=== PATIENT | male | born 1985 | race African-American/Black ===

== ENCOUNTER 2016-12-18 17:04 | Inpatient (IN) | payer MEDICAID ==
[~2016-12-18] VITALS: Ht 177.8 cm; Wt 60.0 kg
[~2016-12-18 17:04] MED LIST: IBUP800 PO
[2016-12-18 17:06] VITALS: BP 113/67; PULSE 74; RESP 24; TEMP 98; O2SAT 100
[2016-12-18] MEDS ORDERED: TETANUS/DIPHTHERIA TOXOID ADULT 0.5 ML VIAL IM ONE (18:00)
[2016-12-18] MEDS ORDERED: CEPHALEXIN MONOHYDRATE 500 MG CAP PO ONE (18:00)
[2016-12-18] MEDS ORDERED: SULFAMETHOXAZOLE-TRIMETHOPRIM DS 800-160 MG TAB PO ONE (18:00)
--- NOTE | 2016-12-18 18:30 | RADRPT ---
EXAM DATE/TIME: 12/18/2016 18:01 [facility] COMPARISON: No previous studies available for comparison. INDICATIONS : Right hand, base of 3rd digit pain after pricked from palm thorn. MEDICAL HISTORY : None. SURGICAL HISTORY : None. ENCOUNTER: Initial ACUITY: 1 day PAIN SCORE: 10/10 LOCATION: Right proximal 3rd digit. FINDINGS: Examination of the third digit of the right hand demonstrates no evidence of fracture or dislocation. No radiopaque foreign bodies are seen. Extensive soft tissue thickening. CONCLUSION: Soft tissue swelling third digit. No radiopaque foreign body. Serafin Kingsley MD on December 18, 2016 at 18:28 Board Certified Radiologist. This report was verified electronically.
[2016-12-18] MEDS ORDERED: VANCOMYCIN INJ 1,000 MG in SODIUM CHLOR 0.9% 250 ML INJ 250 ML IV ONE (20:00)
[2016-12-18 20:09] LABS: AUTOMATED NEUTROPHIL # 6.2 TH/MM3 (1.8-7.7); BASOPHIL # 0.1 TH/MM3 (0-0.2); BASOPHIL % 0.5 % (0.0-2.0); EOSINOPHIL # 0.3 TH/MM3 (0-0.4); HEMATOCRIT 38.1 % (39.0-51.0); HEMO FLAGS DIFF FINAL; LYMPH % 25.6 % (9.0-44.0); LYMPHOCYTE # 2.6 TH/MM3 (1.0-4.8); MEAN CELL VOLUME 96.4 FL (80.0-100.0); MEAN CORPUSCULAR HEMOGLOBIN 31.8 PG (27.0-34.0); MONO % 9.5 % (0.0-8.0); NEUT % 61.4 % (16.0-70.0); PLATELET COUNT 267 TH/MM3 (150-450); RED BLOOD COUNT 3.96 MIL/MM3 (4.50-5.90); RED CELL DISTRIBUTION WIDTH 12.7 % (11.6-17.2); WHITE BLOOD COUNT 10.1 TH/MM3 (4.0-11.0)
[2016-12-18] MEDS: SODIUM CHLORIDE 0.9% FLUSH 10 ML FLUSH IV FLUSH SCH (20:13)
[2016-12-18] MEDS ORDERED: NALOXONE HCL 0.4 MG/ML AMP IV PRN (20:15)
[2016-12-18] MEDS ORDERED: ONDANSETRON HCL 4 MG/2 ML VIAL IVP PRN (20:15)
[2016-12-18] MEDS ORDERED: SODIUM CHLORIDE 0.9% FLUSH 10 ML FLUSH IV FLUSH PRN (20:15)
--- NOTE | 2016-12-18 20:19 | PD ---
HPI Chief Complaint: Edema Time Seen by Provider: 20:13 Travel History International Travel<30 days: No Contact w/Intl Traveler<30days: No Traveled to known affect area: No History of Present Illness HPI 31-year-old male that presents to the ED for evaluation of swelling to his right middle finger. Patient states that he was working outside picking up palm trees and one of the palm trees, big spine that cut him on the palmar aspect of the right middle finger. Patient was able to move the finger fully and he actually went to sleep. Per patient he believes that he got all out. Per patient he woke up and he developed the pain and the swelling. Per patient is severe. Per patient he is able to move the finger where he has a lot of pain especially with flexion at the palmar aspect of the digit. He denies any numbness, tilling, weakness. Unclear of his last tetanus shot. Per patient is happened today. Earlier in the morning. He has no allergies to medication. He has not seen anybody for this. Pain per patient is 8 out of 10 and gets worse with movement and touch. PFSH Past Medical History Medical History: Denies Significant Hx Diminished Hearing: No Immunizations Current: Yes Tetanus Vaccination: Unknown Influenza Vaccination: No ?: Not Past Surgical History Surgical History: No Previous Surgery Social History Alcohol Use: No Tobacco Use: No (1 ppd) Substance Use: No Allergies-Medications (Allergen,Severity, Reaction): Coded Allergies: No Known Allergies (Unverified , 12/18/16) Reported Meds & Prescriptions Reported Meds & Active Scripts Active No Active Prescriptions or Reported Medications Review of Systems Except as stated in HPI: all other systems reviewed are Neg Physical Exam Narrative GENERAL: SKIN: Warm and dry. Patient has an area of erythema and swelling noted on the palmar aspect of the PIP aspect of the right middle finger. Swelling and redness noted. No foreign body noted. Patient has reproducible pain on the tendon around this area especially with flexion. Good capillary refill. Sensation intact bilaterally. HEAD: Atraumatic. Normocephalic. EYES: Pupils equal and round. No scleral icterus. No injection or drainage. ENT: No nasal bleeding or discharge. Mucous membranes pink and moist. Tongue is midline. No blood deviation. NECK: Trachea midline. No JVD. CARDIOVASCULAR: Regular rate and rhythm. RESPIRATORY: No accessory muscle use. Clear to auscultation. Breath sounds equal bilaterally. GASTROINTESTINAL: Abdomen soft, non-tender, nondistended. Hepatic and splenic margins not palpable. MUSCULOSKELETAL: Extremities without clubbing, cyanosis, or edema. No obvious deformities. NEUROLOGICAL: Awake and alert. No obvious cranial nerve deficits. Motor grossly within normal limits. Five out of 5 muscle strength in the arms and legs. Normal speech. PSYCHIATRIC: Appropriate mood and affect; insight and judgment normal. Data Data Last Documented VS Vital Signs Date Time Temp Pulse Resp B/P Pulse Ox O2 Delivery O2 Flow Rate FiO2 12/18/16 17:06 98.0 74 24 113/67 100 Room Air Orders Tetanus/Diphtheria Tox Adult (Tetanus/Di (12/18/16 18:00) Sulfamet-Trimeth Ds 800-160 Mg (Bactrim (12/18/16 18:00) Cephalexin (Keflex) (12/18/16 18:00) Finger (Oxa6yae) (12/18/16 ) Complete Blood Count With Diff (12/18/16 19:35) Basic Metabolic Panel (Bmp) (12/18/16 19:35) Westergren Sedimentation Rate (12/18/16 19:36) C-Reactive Protein (Crp) (12/18/16 19:36) Diet Npo (12/19/16 Breakfast) Consent (12/18/16 19:37) Consult Hand Surgery (12/18/16 ) (Hub Use Only)Inp Phy Cons/Ref (12/18/16 ) Vancomycin Inj (Vancomycin Inj) (12/18/16 20:00) Admit To Inpatient (12/18/16 ) Vital Signs (Adult) Q4H (12/18/16 20:01) Activity Oob Ad Sandra (12/18/16 20:01) Sodium Chloride 0.9% Flush (Ns Flush) (12/18/16 20:15) Sodium Chloride 0.9% Flush (Ns Flush) (12/18/16 21:00) Acetaminophen (Tylenol) (12/18/16 20:15) Ondansetron Inj (Zofran Inj) (12/18/16 20:15) Basic Metabolic Panel (Bmp) (12/19/16 06:00) Complete Blood Count With Diff (12/19/16 06:00) Naloxone Inj (Narcan Inj) (12/18/16 20:15) Inpatient Certification (12/18/16 ) Admit Order (Ed Use Only) (12/18/16 20:06) Labs Laboratory Tests Test 12/18/16 19:45 White Blood Count 10.1 TH/MM3 Red Blood Count 3.96 MIL/MM3 Hemoglobin 12.6 GM/DL Hematocrit 38.1 % Mean Corpuscular Volume 96.4 FL Mean Corpuscular Hemoglobin 31.8 PG Mean Corpuscular Hemoglobin 33.0 % Concent Red Cell Distribution Width 12.7 % Platelet Count 267 TH/MM3 Mean Platelet Volume 7.9 FL Neutrophils (%) (Auto) 61.4 % Lymphocytes (%) (Auto) 25.6 % Monocytes (%) (Auto) 9.5 % Eosinophils (%) (Auto) 3.0 % Basophils (%) (Auto) 0.5 % Neutrophils # (Auto) 6.2 TH/MM3 Lymphocytes # (Auto) 2.6 TH/MM3 Monocytes # (Auto) 1.0 TH/MM3 Eosinophils # (Auto) 0.3 TH/MM3 Basophils # (Auto) 0.1 TH/MM3 CBC Comment DIFF FINAL Differential Comment MDM Medical Decision Making Medical Screen Exam Complete: Yes Emergency Medical Condition: Yes Medical Record Reviewed: Yes Interpretation(s) CBC & BMP Diagram 12/18/16 19:45 Last Impressions Finger X-Ray 12/18/16 0000 Signed Impressions: Service Date/Time: Sunday, December 18, 2016 18:01 - CONCLUSION: Soft tissue swelling third digit. No radiopaque foreign body. Serafin Kingsley MD Differential Diagnosis Tenosynovitis versus cellulitis versus abscess versus foreign body Narrative Course 30-year-old male that presents to the ED for evaluation of right middle finger injury. Patient was properly examined and was found to have signs and symptoms consistent appears to be foreign body versus cellulitis versus abscess versus tenosynovitis. X-ray was done and show no sign of foreign body. I had my attending Dr. Jerry evaluated the patient and he agrees to the finger concerned about tenosynovitis. Recommendation at this time is to consult with hand surgeon. We spoke with Dr. Mills over the phone who recommends admission to medicine and nothing by mouth status and possible surgery today or tomorrow. This was discussed with the patient who agrees with plan. Patient was started on IV as well as IV medications. Patient was admitted to Dr. Puga who agrees to admission. Diagnosis Primary Impression: Tenosynovitis of finger Additional Impression: Cellulitis Qualified Code: L03.011 - Cellulitis of finger of right hand Admitting Information Admitting Physician Requests: Observation Scripts No Active Prescriptions or Reported Meds Chris Sarabia Dec 18, 2016 20:19
[2016-12-18 20:42] LABS: BICARBONATE 27.6 MEQ/L (21.0-32.0); POTASSIUM 3.8 MEQ/L (3.5-5.1)
[2016-12-18] MEDS: ACETAMINOPHEN 325 MG TAB PO PRN (21:14)
[2016-12-18] MEDS ORDERED: diphenhydrAMINE HCL 50 MG/ML VIAL IV PUSH ONE (21:15)
[2016-12-18] MEDS ORDERED: ACETAMINOPHEN/HYDROcodone 325 MG/5 MG TAB PO ONE (22:15)
[2016-12-19 01:04] VITALS: BP 110/71; PULSE 49; RESP 20; TEMP 97.6; O2SAT 98
[2016-12-19 04:17] VITALS: BP 112/76; PULSE 50; RESP 18; TEMP 98.6; O2SAT 98
[2016-12-19] MEDS: MORPHINE SULFATE 4 MG/ML INJ IV PUSH PRN ×3 (05:02→21:54)
[2016-12-19 07:36] LABS: AUTOMATED NEUTROPHIL # 4.5 TH/MM3 (1.8-7.7); BASOPHIL % 0.6 % (0.0-2.0); EOSINOPHIL # 0.2 TH/MM3 (0-0.4); EOSINOPHIL % 3.3 % (0.0-4.0); HEMATOCRIT 38.2 % (39.0-51.0); HEMO FLAGS DIFF FINAL; LYMPH % 25.8 % (9.0-44.0); MEAN CELL VOLUME 95.7 FL (80.0-100.0); MEAN CORPUSCULAR HEMOGLOBIN 32.1 PG (27.0-34.0); MEAN CORPUSCULAR HGB CONC 33.5 % (32.0-36.0); MONO % 12.1 % (0.0-8.0); NEUT % 58.2 % (16.0-70.0); PLATELET COUNT 262 TH/MM3 (150-450); RED BLOOD COUNT 3.99 MIL/MM3 (4.50-5.90); RED CELL DISTRIBUTION WIDTH 12.7 % (11.6-17.2); WHITE BLOOD COUNT 7.6 TH/MM3 (4.0-11.0)
[2016-12-19 07:40] VITALS: BP 108/60; PULSE 60; RESP 22; TEMP 98; O2SAT 98
[2016-12-19 08:09] LABS: BICARBONATE 25.3 MEQ/L (21.0-32.0); POTASSIUM 3.8 MEQ/L (3.5-5.1)
[2016-12-19] MEDS: SODIUM CHLORIDE 0.9% FLUSH 10 ML FLUSH IV FLUSH SCH ×2 (08:48→21:00)
[2016-12-19] MEDS ORDERED: PNEUMOCOCCAL POLYVALENT INJ 25 MCG/0.5 ML SYR IM ONE (10:00)
[2016-12-19] MEDS ORDERED: PHENYLEPH/NS 1000 MCG/10 ML SYR IV ONE (11:52)
[2016-12-19] MEDS ORDERED: PROPOFOL 200 MG/20 ML AMP IV ONE (11:52)
[2016-12-19] MEDS ORDERED: ONDANSETRON HCL 4 MG/2 ML VIAL IV PUSH ONE (11:52)
[2016-12-19 12:10] VITALS: BP 133/65; PULSE 62; RESP 20; TEMP 98.5; O2SAT 100
--- NOTE | 2016-12-19 12:39 | HHI.HP ---
[facility] Admission Diagnosis right middle finger tendosynovitis Diagnoses: Chief Complaint: right middle finger pain/swelling Travel History International Travel<30 Days: No Contact w/Intl Traveler <30 Da: No Traveled to Known Affected Are: No History of Present Illness 31-year-old male with history of tobacco use, presents with a 2 day history of worsening right 3rd finger pain and swelling. The patient reports he was working outside on Friday 12/15 when a palm tree's thorn became lodged into palmar aspect at the base of the right 3rd finger. Later that night he burned a safety pin then used the pin to retrieve the thorn out of his finger. He states the area was initially just sore, but then noticed worsening swelling of the entire finger on Sunday 12/17. Yesterday the swelling worsened and he was unable to bend the finger therefore he presented to the ED. Denies fevers/chills. Since his arrival, he has been given IV Vanco/Zosyn, and he has noticed worsening edema, pain, and warmth of the 2nd, 3rd, 4th digits with edema into the dorsal hand. Pain described as constant, severe, 9/10, worse with any movement of the hand or any palpation. He is still able to flex the right wrist without difficulty. He feels some lymphadenopathy in the right axilla. Denies any lymphangitis. He denies any other medical complaints including no chest pain , palpitations, shortness of breath, or abdominal complaints. He is awaiting evaluation by hand surgery. Review of Systems Except as stated in HPI: all other systems reviewed are Neg Past Family Social History Past Medical History Left arm fracture, no surgery Past Surgical History Denies any prior surgeries Reported Medications Denies taking any medications on a regular basis Allergies: Coded Allergies: No Known Allergies (Unverified , 12/18/16) Active Ordered Medications Current Medications Medications (Trade) Dose Ordered Sig/Nitish Route Start Time Stop Time Status Last Admin (NS Flush) 2 ml UNSCH PRN IV FLUSH 12/18/16 20:15 (NS Flush) 2 ml BID IV FLUSH 12/18/16 21:00 12/19/16 08:48 (Tylenol) 650 mg Q4H PRN PO 12/18/16 20:15 12/18/16 21:14 (Zofran Inj) 4 mg Q6H PRN IVP 12/18/16 20:15 Naloxone HCl 0.4 mg 0.4 mg UNSCH PRN IV 12/18/16 20:15 (Ancef Inj/NS Inj) 100 ml @ 200 mls/hr Q8H IV 12/18/16 22:15 12/19/16 05:03 Morphine Sulfate 2 mg 2 mg Q4H PRN IV PUSH 12/19/16 05:00 12/19/16 05:02 Potassium Chloride/Dextrose/ Sod Cl 1,000 ml @ 100 mls/hr Q10H IV 12/19/16 13:00 Pharmacy Profile Note 0 ml @ 0 mls/hr UNSCH OTHER 12/19/16 12:45 (Vancomycin Inj/ NS 250 ml Inj) 250 ml @ 250 mls/hr Q12H IV 12/19/16 14:00 Miscellaneous Information SPECIFIC LAB TO BE DRAWN:VANCOMYCIN TROUGH DATE TO... ONCE ONCE .XX 12/21/16 01:45 12/21/16 01:46 Family History Denies any significant family history of heart disease, stroke, diabetes, or cancers. Social History Smokes tobacco 1 PPD Denies any alcohol use Denies any illicit drug use Physical Exam Vital Signs Vital Signs Date Time Temp Pulse Resp B/P Pulse Ox O2 Delivery O2 Flow Rate FiO2 12/19/16 12:10 98.5 62 20 133/65 100 12/19/16 07:40 98.0 60 22 108/60 98 12/19/16 05:22 18 12/19/16 04:17 98.6 50 18 112/76 98 12/19/16 02:12 18 12/19/16 01:04 97.6 49 20 110/71 98 12/18/16 21:59 18 12/18/16 17:06 98.0 74 24 113/67 100 Room Air Physical Exam GENERAL: Well-nourished, well-developed young male patient in [facility]. SKIN: Warm and dry. Right 3rd digit with diffuse edema, erythema, with edema extending into 2nd and 4th digits and the hand; diffuse tenderness to palpation throughout the entire hand and 2nd, 3rd, 4th digits. +Axillary lymphadenopathy. HEAD: Normocephalic. Atraumatic. EYES: Pupils equal and round. No scleral icterus. No injection or drainage. ENT: No nasal bleeding or discharge. Mucous membranes pink and moist. NECK: Supple. Trachea midline. CARDIOVASCULAR: Regular rate and rhythm. S1, S2 noted. No murmur appreciated. RESPIRATORY: No accessory muscle use. Clear to auscultation. Breath sounds equal bilaterally. GASTROINTESTINAL: Abdomen soft, non-tender, nondistended. Normoactive bowel sounds x4. MUSCULOSKELETAL: No obvious deformities. Unable to flex the 2nd, 3rd, 4th digits secondary to edema/pain. Full active ROM right wrist. 2+ bilateral radial pulses with brisk capillary refill of all digits. NEUROLOGICAL: Awake and alert. No obvious cranial nerve deficits. Motor grossly within normal limits. Normal speech. PSYCHIATRIC: Appropriate mood and affect; insight and judgment normal. Laboratory Laboratory Tests Test 12/18/16 12/19/16 19:45 06:13 White Blood Count 10.1 7.6 Red Blood Count 3.96 3.99 Hemoglobin 12.6 12.8 Hematocrit 38.1 38.2 Mean Corpuscular Volume 96.4 95.7 Mean Corpuscular Hemoglobin 31.8 32.1 Mean Corpuscular Hemoglobin 33.0 33.5 Concent Red Cell Distribution Width 12.7 12.7 Platelet Count 267 262 Mean Platelet Volume 7.9 8.6 Neutrophils (%) (Auto) 61.4 58.2 Lymphocytes (%) (Auto) 25.6 25.8 Monocytes (%) (Auto) 9.5 12.1 Eosinophils (%) (Auto) 3.0 3.3 Basophils (%) (Auto) 0.5 0.6 Neutrophils # (Auto) 6.2 4.5 Lymphocytes # (Auto) 2.6 2.0 Monocytes # (Auto) 1.0 0.9 Eosinophils # (Auto) 0.3 0.2 Basophils # (Auto) 0.1 0.0 CBC Comment DIFF FINAL DIFF FINAL Differential Comment Erythrocyte Sedimentation Rate 1 Sodium Level 140 142 Potassium Level 3.8 3.8 Chloride Level 106 110 Carbon Dioxide Level 27.6 25.3 Anion Gap 6 7 Blood Urea Nitrogen 17 14 Creatinine 1.20 1.18 Estimat Glomerular Filtration 85 86 Rate Random Glucose 72 68 Calcium Level 8.8 8.4 C-Reactive Protein 0.43 Result Diagram: 12/19/16 0613 12/19/16 0613 Imaging Last Impressions Finger X-Ray 12/18/16 0000 Signed Impressions: Service Date/Time: Sunday, December 18, 2016 18:01 - CONCLUSION: Soft tissue swelling third digit. No radiopaque foreign body. Serafin Kingsley MD Assessment and Plan Problem List: (1) Tenosynovitis of finger ICD Code: M65.9 Status: Acute (2) Cellulitis ICD Code: L03.90 Status: Acute Assessment and Plan 31-year-old male with history of tobacco use, presents with a 2 day history of worsening right 3rd finger pain and swelling. Right 3rd Finger Tenosynovitis/Cellulitis: pain/edema worsening, now diffuse throughout the entire R hand. Afebrile, no leukocytosis. CRP slightly elevated. Right 3rd finger Xray images reviewed, shows soft tissue swelling 3rd digit. -Continue antibiotics with IV Vanco/Zosyn -Keep hand elevated -Ice packs prn -Pain control with IV Morphine prn -check hand MRI -Keep NPO for now -Consult hand surgery -will need to obtain cultures during surgery Tobacco Use: smokes 1 PPD -counseled on cessation -patient declines nicotine patch at this time DVT Prophylaxis: low risk, ambulation; avoid chemoprophylaxis with upcoming procedure The exam, history, and the medical decision-making described in the above note were completed with the assistance of the mid-level provider. I reviewed and agree with the findings presented. I attest that I had a [id number] encounter with the patient on the same day, and personally performed and documented my assessment and findings in the medical record. Code Status Full Code Discussed Condition With Patient, CDU RN, Dr. Maguire Physician Certification 2 Midnight Certification Type: Admission for Inpatient Services Order for Inpatient Services The services are ordered in accordance with Medicare regulations or non- Medicare payer requirements, as applicable. In the case of services not specified as inpatient-only, they are appropriately provided as inpatient services in accordance with the 2-midnight benchmark. Estimated LOS (days): 3 days is the estimated time the patient will need to remain in the hospital, assuming treatment plan goals are met and no additional complications. Post-Hospital Plan: Home Problem Qualifiers (1) Cellulitis: Qualified Code: L03.011 - Cellulitis of finger of right hand Isabelle Mcwilliams PA-C Dec 19, 2016 12:39 Arcadio March MD Dec 19, 2016 15:23
[2016-12-19] MEDS ORDERED: Vancomycin Consult Pharmacy 1 EA OTHER SCH (12:45)
[2016-12-19 14:10] VITALS: BP 113/64; PULSE 54; RESP 18; TEMP 98.2; O2SAT 100
[2016-12-19] MEDS: D5-1/2 NS + KCL 20 MEQ INJ 1,000 ML IV SCH (14:53)
[2016-12-19] MEDS: VANCOMYCIN 1,000 MG/NS 250 ML IV SCH ×2 (14:54)
[2016-12-19] MEDS ORDERED: ceFAZolin INJ 1,000 MG VIAL IV ONE (16:20)
[2016-12-19] MEDS ORDERED: GADODIAMIDE PF 287 MG/ML 5 ML VIAL (for RAD MRI) IV ONE (17:19)
--- NOTE | 2016-12-19 17:42 | RADRPT ---
EXAM DATE/TIME: 12/19/2016 16:34 [facility] COMPARISON: FINGER RIGHT 3RD DIGIT ([id number]), December 18, 2016, 18:01. INDICATIONS : Abscess. CONTRAST: 12 cc Omniscan (gadodiamide) IV MEDICAL HISTORY : None. SURGICAL HISTORY : None. ENCOUNTER: Initial ACUITY: 4-6 days PAIN SCORE: 5/10 LOCATION: Right Hand TECHNIQUE: Multiplanar, multisequence MRI examination was performed without contrast and after the intravenous a dministration of gadolinium. FINDINGS: There is evidence of diffuse soft-tissue swelling involving the right hand predominantly surrounding the right second, third and fourth metacarpophalangeal joints and metacarpals. There is a subcutaneo us collection at the base of the right third digit adjacent to the proximal phalanx measuring 1.0 x 1 .0 cm consistent with probable small subcutaneous abscess. There is minimal marrow edema involving t he proximal portion of the right third proximal phalanx which is nonspecific. If there is strong cli nical concern for osteomyelitis three-phase bone scan or white blood cell scan may be useful in this patient. CONCLUSION: 1. 1.0 x 1.0 cm subcutaneous collection at the base of the right third digit along its volar aspect w hich likely represents small abscess. 2. Diffuse cellulitis predominantly involving the right third digit but also extending into the regio ns of the second and fourth digits predominantly in the metacarpophalangeal and metacarpal regions. 3. Minimal marrow edema involving the proximal portion of the right third proximal phalanx which is n onspecific. If there is strong clinical concern for osteomyelitis, three-phase bone scan or white blo od cell scan may be useful in this patient. Yordan Ambrose MD on December 19, 2016 at 17:25 Board Certified Radiologist. This report was verified electronically.
[2016-12-19] MEDS ORDERED: LIDOCAINE HCL 2% 50 ML VIAL ONE (17:53)
[2016-12-19] MEDS ORDERED: NEOMYCIN/POLYMYXIN 1 ML G.U. IRRIGANT TOPICAL ONE (18:12)
[2016-12-19] MEDS ORDERED: MIDAZOLAM HCL 2 MG/2 ML VIAL ONE (19:05)
[2016-12-19] MEDS ORDERED: fentaNYL CITRATE 250 MCG/5 ML AMP ONE (19:05)
[2016-12-19] MEDS ORDERED: DO NOT ADM ANY ANTICOAGULANT DRUGS PRN (19:15)
[2016-12-19] MEDS ORDERED: *morphine SULFATE 8 MG/ML PERIprocedure ONLY ONE ×2 (19:18→19:30)
[2016-12-19 19:55] VITALS: BP 132/68; PULSE 64; RESP 20; TEMP 98.7; O2SAT 99
--- NOTE | 2016-12-19 21:23 | PD.ORT.PN ---
Subjective Subjective Remarks 31yM s/p palm frond and abscess right middle finger. See dictated notes for full details. Patient reports pain controlled. Objective Vitals Vital Signs Date Time Temp Pulse Resp B/P Pulse Ox O2 Delivery O2 Flow Rate FiO2 12/19/16 19:55 98.7 64 20 132/68 99 12/19/16 19:30 64 29 140/71 95 Room Air 12/19/16 19:15 71 20 117/73 98 Room Air 12/19/16 19:01 91 20 111/66 95 Room Air 12/19/16 19:00 98.3 93 34 112/66 96 Room Air 12/19/16 14:10 98.2 54 18 113/64 100 12/19/16 12:10 98.5 62 20 133/65 100 12/19/16 07:40 98.0 60 22 108/60 98 12/19/16 05:22 18 12/19/16 04:17 98.6 50 18 112/76 98 12/19/16 02:12 18 12/19/16 01:04 97.6 49 20 110/71 98 12/18/16 21:59 18 I/O 12/18/16 12/18/16 12/18/16 12/19/16 12/19/16 12/19/16 07:00 15:00 23:00 07:00 15:00 23:00 Intake Total 25 ml 50 ml 400 ml Output Total 5 ml Balance 25 ml 50 ml 395 ml Intake Oral 25 ml 50 ml Other 400 ml Output Estimated Blood Loss 5 ml Result Diagram: 12/19/16 0613 12/19/16 0613 Imaging Last 24 hours Impressions Hand MRI 12/19/16 0000 Signed Impressions: Service Date/Time: Monday, December 19, 2016 16:34 - CONCLUSION: 1. 1.0 x 1.0 cm subcutaneous collection at the base of the right third digit along its volar aspect which likely represents small abscess. 2. Diffuse cellulitis predominantly involving the right third digit but also extending into the regions of the second and fourth digits predominantly in the metacarpophalangeal and metacarpal regions. 3. Minimal marrow edema involving the proximal portion of the right third proximal phalanx which is nonspecific. If there is strong clinical concern for osteomyelitis, three-phase bone scan or white blood cell scan may be useful in this patient. Yordan Ambrose MD Objective Remarks Dressing in place, <2 sec capillary refill right middle finger, able to fire finger extensors and flexors Assessment & Plan Assessment and Plan 31yM POD0 s/p I&D right middle finger/palm abscess along flexor tendon sheath, no involvement of joint -Follow cultures, continue IV Ab per primary team -Strict hand elevation and gentle ROM -Packing in place, possibly remove packing Thur -Likely followup in 1 week in office after discharge, will continue to follow. Off work for likely 2 weeks Mary Mills MD Dec 19, 2016 21:23
--- NOTE | 2016-12-19 21:47 | MB ---
cc: BENITO MILLSAH DATE OF CONSULTATION 12/19/16 REASON FOR CONSULTATION Concern for abscess, right middle finger and right palm. HISTORY OF PRESENT ILLNESS Santiago Henderson is a pleasant 31-year-old right-hand dominant male who works in [employer] who states that he got a palm frond in the palmar aspect of his hand on 12/15/2016. He states that he himself tried to remove the palm frond with a sterilized forcep and needle. He states that 2 days following he had significant pain and swelling in the right hand and right middle finger. He presented to the emergency room late last night on 12/18/2016. I was called for evaluation but the patient was not n.p.o.. Labs were stable. I recommended admission for IV antibiotics and consideration for surgical intervention. The patient denies any prior significant injury to the right hand. He has been on IV antibiotics with minimal improvement in his pain and swelling. He reports mild paresthesias over the right middle finger. He reports pain with range of motion of the right middle finger. ALLERGIES NO KNOWN DRUG ALLERGIES. PAST MEDICAL HISTORY Denies. SOCIAL HISTORY The patient does smoke one pack per day. Denies any alcohol or drug use. Again, he does work for [employer]. LABORATORY DATA White count 7.6, ESR 1, CRP 0.43. PHYSICAL EXAMINATION VITAL SIGNS: The temperature 98.5, pulse 62, blood pressure 133/65. GENERAL: The patient is alert and oriented. DIRECTED EXAMINATION: Exam of the right hand does show edema over the dorsum and volar aspect of the right hand. The patient does have a puncture wound over the volar aspect of the right middle finger at the metacarpal phalangeal crease. Sensation is present but decreased on the radial ulnar side. He has less than 2-second capillary refill to all fingers. He has minimal pain with range of motion of the index, ring and small fingers. He has significant pain with range of motion of the right middle finger, tenderness along the flexor tendon sheath. No pain with range of motion of the wrist. IMAGING STUDIES X-rays of the right middle finger show no evidence of fracture dislocation or retained metallic foreign body. MRI was ordered by the primary team of the right hand which does show an abscess collection on the volar aspect of the right middle finger, again at the level of the proximal phalanx. ASSESSMENT/PLAN A 31-year-old right-hand dominant male with an abscess over the volar aspect of the right middle finger. Treatment options were discussed with the patient. I recommended incision and drainage, continued IV antibiotics once the patient was cleared from an n.p.o. status. He elected to proceed. This was done at the earliest available time of the operating room. Risks were explained but not limited to wound complications, infection, sepsis, stiffness, pain, need for additional surgeries, time off work and he elected to proceed. He understands he will likely be in the hospital for several days on IV antibiotics. Mary Mills MD SH/REFUGIO /9:32 PM /9:40 PM MTDD
[2016-12-20 00:20] VITALS: BP 139/83; PULSE 73; RESP 22; TEMP 100; O2SAT 100
[2016-12-20] MEDS: ACETAMINOPHEN 325 MG TAB PO PRN (00:45)
[2016-12-20] MEDS: MORPHINE SULFATE 4 MG/ML INJ IV PUSH PRN ×6 (01:40→22:08)
[2016-12-20] MEDS: D5-1/2 NS + KCL 20 MEQ INJ 1,000 ML IV SCH ×3 (03:00→18:17)
[2016-12-20] MEDS: VANCOMYCIN 1,000 MG/NS 250 ML IV SCH ×4 (03:15→14:13)
[2016-12-20 04:20] VITALS: BP 125/70; PULSE 68; RESP 22; TEMP 98.6; O2SAT 100
[2016-12-20 08:00] VITALS: BP 115/60; PULSE 76; RESP 22; TEMP 98.3; O2SAT 100
[2016-12-20] MEDS: SODIUM CHLORIDE 0.9% FLUSH 10 ML FLUSH IV FLUSH SCH ×2 (08:22→21:00)
--- NOTE | 2016-12-20 10:34 | HHI.PR ---
Subjective Remarks in no acute distress. pain is controlled. T max 100. Objective Vitals Vital Signs Date Time Temp Pulse Resp B/P Pulse Ox O2 Delivery O2 Flow Rate FiO2 12/20/16 04:20 98.6 68 22 125/70 100 12/20/16 00:20 100.0 73 22 139/83 100 12/19/16 19:55 98.7 64 20 132/68 99 12/19/16 19:30 64 29 140/71 95 Room Air 12/19/16 19:15 71 20 117/73 98 Room Air 12/19/16 19:01 91 20 111/66 95 Room Air 12/19/16 19:00 98.3 93 34 112/66 96 Room Air 12/19/16 14:10 98.2 54 18 113/64 100 12/19/16 12:10 98.5 62 20 133/65 100 I/O 12/19/16 12/19/16 12/19/16 12/20/16 12/20/16 12/20/16 06:59 14:59 22:59 06:59 14:59 22:59 Intake Total 50 ml 400 ml 2650 ml Output Total 5 ml Balance 50 ml 395 ml 2650 ml Intake Oral 50 ml 1200 ml IV Total 1450 ml Other 400 ml Output Estimated Blood Loss 5 ml # Voids 2 Result Diagram: 12/19/16 0613 12/19/16 0613 Imaging Last Impressions Hand MRI 12/19/16 0000 Signed Impressions: Service Date/Time: Monday, December 19, 2016 16:34 - CONCLUSION: 1. 1.0 x 1.0 cm subcutaneous collection at the base of the right third digit along its volar aspect which likely represents small abscess. 2. Diffuse cellulitis predominantly involving the right third digit but also extending into the regions of the second and fourth digits predominantly in the metacarpophalangeal and metacarpal regions. 3. Minimal marrow edema involving the proximal portion of the right third proximal phalanx which is nonspecific. If there is strong clinical concern for osteomyelitis, three-phase bone scan or white blood cell scan may be useful in this patient. Yordan Ambrose MD Finger X-Ray 12/18/16 0000 Signed Impressions: Service Date/Time: Sunday, December 18, 2016 18:01 - CONCLUSION: Soft tissue swelling third digit. No radiopaque foreign body. Serafin Kingsley MD Objective Remarks GENERAL: This is a well-nourished, well-developed patient, in no apparent distress. CARDIOVASCULAR: Regular rate and regular rhythm without murmurs, gallops, or rubs. RESPIRATORY: Clear to auscultation. Breath sounds equal bilaterally. No wheezes , rales, or rhonchi. GASTROINTESTINAL: Abdomen soft, non-tender, nondistended. Normal, active bowel sounds MUSCULOSKELETAL: right hand covered with clean dressing. NEURO: Alert & Oriented x4 to person, place, time, situation. Moves all ext x4 Medications and IVs Current Medications Tetanus/ Diphtheria Toxoids (Tetanus/ Diphtheria Tox Adult) 0.5 ml ONCE ONCE IM Last administered on 12/18/16 18:19; Start 12/18/16 at 18:00; Stop 12/18/16 at 18:01; Status DC Trimethoprim/ Sulfamethoxazole (Bactrim Ds 800-160 Mg) 1 tab ONCE ONCE PO Last administered on 12/18/16 18:19; Start 12/18/16 at 18:00; Stop 12/18/16 at 18:01; Status DC Cephalexin Monohydrate 500 mg 500 mg ONCE ONCE PO Last administered on 18:20; Start 12/18/16 at 18:00; Stop 12/18/16 at 18:01; Status DC Vancomycin HCl/ Sodium Chloride (Vancomycin Inj/ NS 250 ml Inj) 250 ml @ 250 mls/hr ONCE ONCE IV Last administered on 12/18/16 20:13; Start 12/18/16 at 20 :00; Stop 12/18/16 at 20:59; Status DC Sodium Chloride (NS Flush) 2 ml UNSCH PRN IV FLUSH FLUSH AFTER USING IV ACCESS ; Start 12/18/16 at 20:15 Sodium Chloride (NS Flush) 2 ml BID IV FLUSH Last administered on 12/19/16 08: 48; Start 12/18/16 at 21:00 Acetaminophen (Tylenol) 650 mg Q4H PRN PO TEMP > 100.4 Last administered on 00:45; Start 12/18/16 at 20:15 Ondansetron HCl (Zofran Inj) 4 mg Q6H PRN IVP NAUSEA OR VOMITING; Start at 20:15 Naloxone HCl (Narcan Inj) 0.4 mg UNSCH PRN IV SEE LABEL COMMENTS; Start at 20:15 Diphenhydramine HCl (Benadryl Inj) 50 mg ONCE ONCE IV PUSH Last administered on 12/18/16 21:18; Start 12/18/16 at 21:15; Stop 12/18/16 at 21:16; Status DC Acetaminophen/ Hydrocodone Bitart 1 tab 1 tab ONCE ONCE PO Last administered on 12/18/16 22:59; Start 12/18/16 at 22:15; Stop 12/18/16 at 22:16; Status DC Cefazolin Sodium/ Sodium Chloride (Ancef Inj/NS Inj) 100 ml @ 200 mls/hr Q8H IV Last administered on 12/19/16 05:03; Start 12/18/16 at 22:15; Stop at 14:47; Status DC Pneumococcal Polyvalent Vaccine (Pneumovax-23 Inj) 25 mcg ONCE ONCE IM Last administered on 12/19/16 08:48; Start 12/19/16 at 10:00; Stop 12/19/16 at 10:01 ; Status DC Morphine Sulfate 2 mg 2 mg Q4H PRN IV PUSH pain >5 Last administered on 09:58; Start 12/19/16 at 05:00 Potassium Chloride/Dextrose/ Sod Cl 1,000 ml @ 100 mls/hr Q10H IV Last administered on 12/20/16 09:59; Start 12/19/16 at 13:00 Pharmacy Profile Note 0 ml @ 0 mls/hr UNSCH OTHER ; Start 12/19/16 at 12:45 Vancomycin HCl/ Sodium Chloride (Vancomycin Inj/ NS 250 ml Inj) 250 ml @ 250 mls/hr Q12H IV Last administered on 12/20/16 03:15; Start 12/19/16 at 14:00 Miscellaneous Information SPECIFIC LAB TO BE DRAWN:VANCOMYCIN TROUGH DATE TO... ONCE ONCE .XX ; Start 12/21/16 at 01:45; Stop 12/21/16 at 01:46 Cefazolin Sodium/ Sodium Chloride (Ancef Inj/NS Inj) 100 ml @ 200 mls/hr Q8H IV Last administered on 12/20/16 07:38; Start 12/19/16 at 16:00 Gadodiamide (Omniscan Pf Inj) 12 ml STK-MED ONCE IV Last administered on 17:19; Start 12/19/16 at 17:19; Stop 12/19/16 at 17:20; Status DC Lidocaine HCl (Xylocaine 2% Inj) 50 ml STK-MED ONCE .ROUTE Last administered on 12/19/16 18:50; Start 12/19/16 at 17:53; Stop 12/19/16 at 17:54; Status DC Neomycin/Polymyxin (Neosporin G.u. Irr) 2 ml STK-MED ONCE TOPICAL Last administered on 12/19/16 18:12; Start 12/19/16 at 18:12; Stop 12/19/16 at 18:55 ; Status DC Cefazolin Sodium (Ancef Inj) 1,000 mg STK-MED ONCE IV Last administered on 12/19 16:20; Start 12/19/16 at 16:20; Stop 12/19/16 at 18:55; Status DC Midazolam HCl (Versed Inj) 2 mg STK-MED ONCE .ROUTE ; Start 12/19/16 at 19:05; Stop 12/19/16 at 19:06; Status DC Fentanyl Citrate (fentaNYL INJ) 250 mcg STK-MED ONCE .ROUTE ; Start 12/19/16 at 19:05; Stop 12/19/16 at 19:06; Status DC Miscellaneous Information ALL NURSING DEPARTME... UNSCH PRN .XX SEE LABEL COMMENTS; Start 12/19/16 at 19:15; Stop 12/20/16 at 19:14 Morphine Sulfate (*morphine INJ PERIprocedure ONLY) 8 mg STK-MED ONCE .ROUTE Last administered on 12/19/16 19:18; Start 12/19/16 at 19:18; Stop 12/19/16 at 19:19; Status DC Morphine Sulfate (*morphine INJ PERIprocedure ONLY) 8 mg STK-MED ONCE .ROUTE Last administered on 12/19/16 19:30; Start 12/19/16 at 19:30; Stop 12/19/16 at 19:31; Status DC A/P Assessment and Plan Right 3rd Finger Tenosynovitis/Cellulitis: pain/edema worsening, now diffuse throughout the entire R hand. -s/p I/D -Continue IV antibiotics -Keep hand elevated -Ice packs prn -Pain control with IV Morphine prn - hand surgery following. -follow the cultures Tobacco Use: smokes 1 PPD -counseled on cessation -patient declines nicotine patch at this time Discharge Planning likely dc home tomorrow if afebrile and when the culture is resulted. Esperanza Goldman MD Dec 20, 2016 10:34
[2016-12-20 17:00] VITALS: BP 119/64; PULSE 76; RESP 18; TEMP 98.7; O2SAT 100
[2016-12-20 20:00] VITALS: BP 115/69; PULSE 55; RESP 16; TEMP 99.2; O2SAT 100
[2016-12-20] MEDS ORDERED: HYDROmorphone HCL PF 1 MG/ML VIAL IV ONE (21:00)
[2016-12-21] VITALS: BP 110/47; PULSE 55; RESP 16; TEMP 98.1; O2SAT 100
[2016-12-21] MEDS: D5-1/2 NS + KCL 20 MEQ INJ 1,000 ML IV SCH (00:22)
[2016-12-21] MEDS ORDERED: PHARMACY ORDERED LAB ONE (01:45)
[2016-12-21 03:00] LABS: VANCOMYCIN TROUGH 7.7 MCG/ML (5.0-10.0)
[2016-12-21] MEDS: MORPHINE SULFATE 4 MG/ML INJ IV PUSH PRN ×2 (03:18→08:32)
[2016-12-21] MEDS: VANCOMYCIN 1,000 MG/NS 250 ML IV SCH ×2 (03:19)
[2016-12-21 04:00] VITALS: BP 100/59; PULSE 55; RESP 16; TEMP 98.1; O2SAT 100
[2016-12-21 08:30] VITALS: BP 113/60; PULSE 57; RESP 18; TEMP 98.6; O2SAT 100
[2016-12-21] MEDS: SODIUM CHLORIDE 0.9% FLUSH 10 ML FLUSH IV FLUSH SCH (08:31)
--- NOTE | 2016-12-21 09:47 | HHI.PR ---
Subjective Remarks resting comfortably with no distress. still with pain to the right hand. no fever. Objective Vitals Vital Signs Date Time Temp Pulse Resp B/P Pulse Ox O2 Delivery O2 Flow Rate FiO2 12/21/16 09:08 18 12/21/16 04:00 Room Air 12/21/16 04:00 98.1 55 16 100/59 100 12/21/16 00:00 Room Air 12/21/16 00:00 98.1 55 16 110/47 100 12/20/16 20:00 99.2 55 16 115/69 100 12/20/16 20:00 Room Air 12/20/16 17:00 98.7 76 18 119/64 100 I/O 12/20/16 12/20/16 12/20/16 12/21/16 12/21/16 12/21/16 07:00 15:00 23:00 07:00 15:00 23:00 Intake Total 2650 ml 2650 ml 1870 ml Balance 2650 ml 2650 ml 1870 ml Intake Oral 1200 ml 1000 ml 420 ml IV Total 1450 ml 1650 ml 1450 ml # Voids 2 4 3 Result Diagram: 12/19/16 0613 12/21/16 0220 Imaging Last Impressions Hand MRI 12/19/16 0000 Signed Impressions: Service Date/Time: Monday, December 19, 2016 16:34 - CONCLUSION: 1. 1.0 x 1.0 cm subcutaneous collection at the base of the right third digit along its volar aspect which likely represents small abscess. 2. Diffuse cellulitis predominantly involving the right third digit but also extending into the regions of the second and fourth digits predominantly in the metacarpophalangeal and metacarpal regions. 3. Minimal marrow edema involving the proximal portion of the right third proximal phalanx which is nonspecific. If there is strong clinical concern for osteomyelitis, three-phase bone scan or white blood cell scan may be useful in this patient. Yordan Ambrose MD Finger X-Ray 12/18/16 0000 Signed Impressions: Service Date/Time: Sunday, December 18, 2016 18:01 - CONCLUSION: Soft tissue swelling third digit. No radiopaque foreign body. Serafin Kingsley MD Objective Remarks GENERAL: This is a well-nourished, well-developed patient, in no apparent distress. CARDIOVASCULAR: Regular rate and regular rhythm without murmurs, gallops, or rubs. RESPIRATORY: Clear to auscultation. Breath sounds equal bilaterally. No wheezes , rales, or rhonchi. GASTROINTESTINAL: Abdomen soft, non-tender, nondistended. Normal, active bowel sounds MUSCULOSKELETAL: right hand covered with clean dressing. NEURO: Alert & Oriented x4 to person, place, time, situation. Moves all ext x4 Medications and IVs Current Medications Tetanus/ Diphtheria Toxoids (Tetanus/ Diphtheria Tox Adult) 0.5 ml ONCE ONCE IM Last administered on 12/18/16 18:19; Start 12/18/16 at 18:00; Stop 12/18/16 at 18:01; Status DC Trimethoprim/ Sulfamethoxazole (Bactrim Ds 800-160 Mg) 1 tab ONCE ONCE PO Last administered on 12/18/16 18:19; Start 12/18/16 at 18:00; Stop 12/18/16 at 18:01; Status DC Cephalexin Monohydrate 500 mg 500 mg ONCE ONCE PO Last administered on 18:20; Start 12/18/16 at 18:00; Stop 12/18/16 at 18:01; Status DC Vancomycin HCl/ Sodium Chloride (Vancomycin Inj/ NS 250 ml Inj) 250 ml @ 250 mls/hr ONCE ONCE IV Last administered on 12/18/16 20:13; Start 12/18/16 at 20 :00; Stop 12/18/16 at 20:59; Status DC Sodium Chloride (NS Flush) 2 ml UNSCH PRN IV FLUSH FLUSH AFTER USING IV ACCESS ; Start 12/18/16 at 20:15 Sodium Chloride (NS Flush) 2 ml BID IV FLUSH Last administered on 12/21/16 08: 31; Start 12/18/16 at 21:00 Acetaminophen (Tylenol) 650 mg Q4H PRN PO TEMP > 100.4 Last administered on 00:45; Start 12/18/16 at 20:15 Ondansetron HCl (Zofran Inj) 4 mg Q6H PRN IVP NAUSEA OR VOMITING; Start at 20:15 Naloxone HCl (Narcan Inj) 0.4 mg UNSCH PRN IV SEE LABEL COMMENTS; Start at 20:15 Diphenhydramine HCl (Benadryl Inj) 50 mg ONCE ONCE IV PUSH Last administered on 12/18/16 21:18; Start 12/18/16 at 21:15; Stop 12/18/16 at 21:16; Status DC Acetaminophen/ Hydrocodone Bitart 1 tab 1 tab ONCE ONCE PO Last administered on 12/18/16 22:59; Start 12/18/16 at 22:15; Stop 12/18/16 at 22:16; Status DC Cefazolin Sodium/ Sodium Chloride (Ancef Inj/NS Inj) 100 ml @ 200 mls/hr Q8H IV Last administered on 12/19/16 05:03; Start 12/18/16 at 22:15; Stop at 14:47; Status DC Pneumococcal Polyvalent Vaccine (Pneumovax-23 Inj) 25 mcg ONCE ONCE IM Last administered on 12/19/16 08:48; Start 12/19/16 at 10:00; Stop 12/19/16 at 10:01 ; Status DC Morphine Sulfate 2 mg 2 mg Q4H PRN IV PUSH pain >5 Last administered on 08:32; Start 12/19/16 at 05:00 Potassium Chloride/Dextrose/ Sod Cl 1,000 ml @ 100 mls/hr Q10H IV Last administered on 12/21/16 00:22; Start 12/19/16 at 13:00 Pharmacy Profile Note 0 ml @ 0 mls/hr UNSCH OTHER ; Start 12/19/16 at 12:45 Vancomycin HCl/ Sodium Chloride (Vancomycin Inj/ NS 250 ml Inj) 250 ml @ 250 mls/hr Q12H IV Last administered on 12/21/16 03:19; Start 12/19/16 at 14:00 Miscellaneous Information SPECIFIC LAB TO BE DRAWN:VANCOMYCIN TROUGH DATE TO... ONCE ONCE .XX ; Start 12/21/16 at 01:45; Stop 12/21/16 at 01:46; Status DC Cefazolin Sodium/ Sodium Chloride (Ancef Inj/NS Inj) 100 ml @ 200 mls/hr Q8H IV Last administered on 12/21/16 08:31; Start 12/19/16 at 16:00 Gadodiamide (Omniscan Pf Inj) 12 ml STK-MED ONCE IV Last administered on 17:19; Start 12/19/16 at 17:19; Stop 12/19/16 at 17:20; Status DC Lidocaine HCl (Xylocaine 2% Inj) 50 ml STK-MED ONCE .ROUTE Last administered on 12/19/16 18:50; Start 12/19/16 at 17:53; Stop 12/19/16 at 17:54; Status DC Neomycin/Polymyxin (Neosporin G.u. Irr) 2 ml STK-MED ONCE TOPICAL Last administered on 12/19/16 18:12; Start 12/19/16 at 18:12; Stop 12/19/16 at 18:55 ; Status DC Cefazolin Sodium (Ancef Inj) 1,000 mg STK-MED ONCE IV Last administered on 12/19 16:20; Start 12/19/16 at 16:20; Stop 12/19/16 at 18:55; Status DC Midazolam HCl (Versed Inj) 2 mg STK-MED ONCE .ROUTE ; Start 12/19/16 at 19:05; Stop 12/19/16 at 19:06; Status DC Fentanyl Citrate (fentaNYL INJ) 250 mcg STK-MED ONCE .ROUTE ; Start 12/19/16 at 19:05; Stop 12/19/16 at 19:06; Status DC Miscellaneous Information ALL NURSING DEPARTME... UNSCH PRN .XX SEE LABEL COMMENTS; Start 12/19/16 at 19:15; Stop 12/20/16 at 19:14; Status DC Morphine Sulfate (*morphine INJ PERIprocedure ONLY) 8 mg STK-MED ONCE .ROUTE Last administered on 12/19/16 19:18; Start 12/19/16 at 19:18; Stop 12/19/16 at 19:19; Status DC Morphine Sulfate (*morphine INJ PERIprocedure ONLY) 8 mg STK-MED ONCE .ROUTE Last administered on 12/19/16 19:30; Start 12/19/16 at 19:30; Stop 12/19/16 at 19:31; Status DC Hydromorphone HCl (Dilaudid Pf Inj) 1 mg NOW ONCE IV Last administered on 12/20 21:00; Start 12/20/16 at 21:00; Stop 12/20/16 at 21:01; Status DC A/P Assessment and Plan Right 3rd Finger Tenosynovitis/Cellulitis: pain/edema worsening, now diffuse throughout the entire R hand. -s/p I/D -wound culture with MRSA -Continue antibiotics -Keep hand elevated -Ice packs prn -Pain control with norco upon discharge. - hand surgery following. Tobacco Use: smokes 1 PPD -counseled on cessation -patient declines nicotine patch at this time Discharge Planning dc home when cleared by hand surgery. see med list. d/w the patient. Esperanza Goldman MD Dec 21, 2016 09:47
[2016-12-21] MEDS ORDERED: NORC5TAB PO (09:48)
--- NOTE | 2016-12-21 09:48 | HHI.DCPOC ---
Discharge Care Plan Diagnosis: (1) Cellulitis Your Health Problems Are: Inflammation Goals to Promote Your Health * To prevent worsening of your condition and complications * To maintain your health at the optimal level Directions to Meet Your Goals Take your medications as prescribed Follow your dietary instruction Follow activity as directed Keep your appointments as scheduled Take your immunizations and boosters as scheduled If your symptoms worsen call your PCP, if no PCP go to Urgent Care Center or Emergency Room Smoking is Dangerous to Your Health. Avoid second hand smoke Call the 24-hour hour crisis hotline for domestic abuse at Esperanza Goldman MD Dec 21, 2016 09:48
[2016-12-21] MEDS ORDERED: CLIN1CAP6 PO (09:50)
--- NOTE | 2016-12-21 11:43 | MP ---
cc: MARY MILLS DATE OF SURGERY: 12/19/2016 PREOPERATIVE DIAGNOSIS Abscess right middle finger as well as flexor tenosynovitis right middle finger. POSTOPERATIVE DIAGNOSIS Abscess right middle finger as well as flexor tenosynovitis right middle finger. PROCEDURE Incision and drainage abscess along the flexor tendon sheath, right middle finger. SURGEON Dr. Mary Mills ANESTHESIA General and local. TOURNIQUET TIME 20 minutes at 250 mmHg. SPECIMEN Cultures x2. DRAINS Packing. INDICATION FOR PROCEDURE Santiago Henderson is a pleasant 31-year-old right-hand dominant male who states that he got a palm frond in the volar aspect of the right middle finger on December 15. He states that he then attempted to remove this with a tweezer and two days following this he had increasing pain and swelling and presented to the emergency room last night. He was admitted for IV antibiotics and reported minimal improvement. MRI confirmed abscess. The patient was to proceed with surgical intervention. Risks were explained but not limited to wound complications, infection, sepsis, stiffness, pain, paresthesias, weakness, need for additional surgeries, and he elects to proceed. DESCRIPTION OF PROCEDURE The patient was identified in the preoperative holding area. The right upper extremity was marked. The patient was taken to the operating room where anesthesia was induced. The right upper extremity was prepped and draped in a normal sterile fashion. Tourniquet was inflated without Esmarch to 250 mmHg for 20 minutes. A Arvind incision was centered over the right middle finger metacarpophalangeal flexion crease. Immediately upon making a skin incision there was obvious purulence which was sent for culture. Care was taken to protect the digital nerves and digital arteries. The palmar fascia was incised. The flexor tendon sheath was incised and there was mild purulence. No evidence of involvement of the metacarpophalangeal joint. This area was irrigated with 4 liters of antibiotic saline. Tourniquet was released. Hemostasis obtained. Packing was placed. The remainder of the skin was closed loosely with chromic. The patient was placed into a soft dressing and awoken from anesthesia without any complications. He will be educated on strict elevation and continue IV antibiotics. Approximately 10 cc of 2% lidocaine with no epinephrine was used for local anesthesia over the hand. MD MOISES Schulz/VANESSA /9:36 PM /11:26 AM MTDPorter
[2016-12-21] MEDS ORDERED: VANCOMYCIN INJ 1,250 MG in SODIUM CHLOR 0.9% 250 ML INJ 250 ML IV SCH (12:00)
[2016-12-21 12:09] VITALS: BP 105/52; PULSE 61; RESP 18; TEMP 98.7; O2SAT 98
--- NOTE | 2016-12-21 12:55 | HHI.DS ---
Discharge Summary Admission Date Dec 18, 2016 at 20:07 Discharge Date: Dec 21, 2016 Admitting Diagnosis right middle finger tendosynovitis (1) Tenosynovitis of finger ICD Code: M65.9 Diagnosis: Principal (2) Cellulitis ICD Code: L03.90 Diagnosis: Principal Procedures I/D of the right hand. Brief History - From Admission 31-year-old male with history of tobacco use, presents with a 2 day history of worsening right 3rd finger pain and swelling. The patient reports he was working outside on Friday 12/15 when a palm tree's thorn became lodged into palmar aspect at the base of the right 3rd finger. Later that night he burned a safety pin then used the pin to retrieve the thorn out of his finger. He states the area was initially just sore, but then noticed worsening swelling of the entire finger on Sunday 12/17. Yesterday the swelling worsened and he was unable to bend the finger therefore he presented to the ED. Denies fevers/chills. Since his arrival, he has been given IV Vanco/Zosyn, and he has noticed worsening edema, pain, and warmth of the 2nd, 3rd, 4th digits with edema into the dorsal hand. Pain described as constant, severe, 9/10, worse with any movement of the hand or any palpation. He is still able to flex the right wrist without difficulty. He feels some lymphadenopathy in the right axilla. Denies any lymphangitis. He denies any other medical complaints including no chest pain , palpitations, shortness of breath, or abdominal complaints. He is awaiting evaluation by hand surgery. CBC/BMP: 12/19/16 0613 12/21/16 0220 Significant Findings Laboratory Tests Test 12/18/16 12/19/16 19:45 06:13 Red Blood Count 3.96 MIL/MM3 3.99 MIL/MM3 (4.50-5.90) (4.50-5.90) Hemoglobin 12.6 GM/DL 12.8 GM/DL (13.0-17.0) (13.0-17.0) Hematocrit 38.1 % 38.2 % (39.0-51.0) (39.0-51.0) Monocytes (%) (Auto) 9.5 % (0.0-8.0) 12.1 % (0.0-8.0) Monocytes # (Auto) 1.0 TH/MM3 (0-0.9) Estimat Glomerular Filtration 85 ML/MIN (>89) 86 ML/MIN (>89) Rate Random Glucose 72 MG/DL 68 MG/DL (74-106) (74-106) C-Reactive Protein 0.43 MG/DL (0.00-0.30) Chloride Level 110 MEQ/L (98-107) Calcium Level 8.4 MG/DL (8.5-10.1) Imaging Last Impressions Hand MRI 12/19/16 0000 Signed Impressions: Service Date/Time: Monday, December 19, 2016 16:34 - CONCLUSION: 1. 1.0 x 1.0 cm subcutaneous collection at the base of the right third digit along its volar aspect which likely represents small abscess. 2. Diffuse cellulitis predominantly involving the right third digit but also extending into the regions of the second and fourth digits predominantly in the metacarpophalangeal and metacarpal regions. 3. Minimal marrow edema involving the proximal portion of the right third proximal phalanx which is nonspecific. If there is strong clinical concern for osteomyelitis, three-phase bone scan or white blood cell scan may be useful in this patient. Yordan Ambrose MD Finger X-Ray 12/18/16 0000 Signed Impressions: Service Date/Time: Sunday, December 18, 2016 18:01 - CONCLUSION: Soft tissue swelling third digit. No radiopaque foreign body. Serafin Kingsley MD PE at Discharge GENERAL: This is a well-nourished, well-developed patient, in no apparent distress. CARDIOVASCULAR: Regular rate and regular rhythm without murmurs, gallops, or rubs. RESPIRATORY: Clear to auscultation. Breath sounds equal bilaterally. No wheezes , rales, or rhonchi. GASTROINTESTINAL: Abdomen soft, non-tender, nondistended. Normal, active bowel sounds MUSCULOSKELETAL: right hand covered with clean dressing. NEURO: Alert & Oriented x4 to person, place, time, situation. Moves all ext x4 Hospital Course Right 3rd Finger Tenosynovitis/Cellulitis: pain/edema worsening, now diffuse throughout the entire R hand. -s/p I/D -wound culture with MRSA -Continue antibiotics -Keep hand elevated -Ice packs prn -Pain control with norco upon discharge. - hand surgery following. Tobacco Use: smokes 1 PPD -counseled on cessation -patient declines nicotine patch at this time Pt Condition on Discharge: Good Discharge Disposition: Discharge Home Discharge Time: <= 30 minutes Discharge Instructions DIET: Follow Instructions for: As Tolerated, No Restrictions Activities you can perform: Regular-No Restrictions Esperanza Goldman MD Dec 21, 2016 12:55
--- NOTE | 2016-12-21 14:05 | HHI.PR ---
Addendum To [facility] Progress Not Reason for addendum: Additonal documentation (d/w and the patient was cleared for discharge. patient will see next Sunday in the office for follow-up.) Esperanza Goldman MD Dec 21, 2016 14:05
[2016-12-22] MEDS ORDERED: PHARMACY ORDERED LAB ONE (23:45)
== END 2016-12-21 14:00 | disposition home or self-care (01) | DRG 513 ==
LOC: NEPD 17:04 → OBSVTOIN 20:07 → NEDA 20:07 → NEPGCP 21:14 → H6YA 12-19 13:53
PROVIDERS: ADMIT Internal Medicine; ATTEND Internal Medicine
PROC: 0L970ZZ Drainage of Right Hand Tendon, Open Approach (ICD-10-PCS; principal; 2016-12-19 17:43)
DX: M65.9 Synovitis and tenosynovitis, unspecified (principal); L02.511 Cutaneous abscess of right hand; F17.210 Nicotine dependence, cigarettes, uncomplicated; L03.011 Cellulitis of right finger; B95.62 Methicillin resistant Staphylococcus aureus infection as the cause of diseases classified elsewhere; Z23 Encounter for immunization
CPT/HCPCS: 73140; 73220; 80048; 80202; 82565; 85025; 85652; 86140; 86403; 87015; 87070; 87102; 87116; 87147; 87186; 87205; 87206; 90714; 90732; A9579; J0690; J1170; J1200; J2250; J2270; J2370; J2405; J3010; J3370; J3480; J7050

== ENCOUNTER 2017-04-20 13:11 | Emergency (ER) | payer MEDICAID ==
[~2017-04-20] VITALS: Ht 180.3 cm; Wt 63.5 kg
[~2017-04-20 13:11] MED LIST changes: +CLIN300C5 PO; -IBUP800 PO; +NORC5TAB PO
[2017-04-20 13:13] VITALS: BP 124/66; PULSE 83; RESP 16; TEMP 98.9; O2SAT 99
--- NOTE | 2017-04-20 13:43 | PD ---
HPI Chief Complaint: Cold / Flu Symptoms Time Seen by Provider: 13:36 Travel History International Travel<30 days: No Contact w/Intl Traveler<30days: No History of Present Illness HPI 31-year-old male presents to emergency department complaining of cough cold symptoms for approximately 3 weeks. States that he has had a productive cough with green sputum, fever of 103-107 broken with Mucinex, sore throat. He developed low back pain and body aches for a one-week ago that is worse with coughing. Denies nausea vomiting or diarrhea. Patient denies abdominal pain, chest pain, urinary symptoms. He denies any trauma. Patient denies any chronic medical issues or medication use. States he is using Mucinex and a couple of other mwpu-dav-smiqede medications without relief. He works in waste disposal. PFSH Past Medical History Asthma: No Blood Disorders: No Anxiety: No Depression: No Heart Rhythm Problems: No Cancer: No Cardiovascular Problems: No High Cholesterol: No Chemotherapy: No Chest Pain: No Congestive Heart Failure: No COPD: No Diabetes: No Diminished Hearing: No Endocrine: No Genitourinary: No Immune Disorder: No Musculoskeletal: No Neurologic: No Psychiatric: No Reproductive: No Respiratory: No Immunizations Current: Yes Radiation Therapy: No Sleep Apnea: No Thyroid Disease: No Social History Alcohol Use: No Tobacco Use: No (1 ppd) Substance Use: No Allergies-Medications (Allergen,Severity, Reaction): Coded Allergies: *MDRO Multi-Drug Resistant Organism (Verified Adverse Reaction, Unknown, 04/20/17) MRSA (finger) 12/19/16 Reported Meds & Prescriptions Reported Meds & Active Scripts Active Augmentin (Amoxicillin-Clavulanate) 875-125 Mg Tab 1 Tab PO BID 10 Days Tessalon Perles (Benzonatate) 100 Mg Cap 100 Mg PO TID PRN 5 Days Review of Systems Except as stated in HPI: all other systems reviewed are Neg Physical Exam Narrative GENERAL: Well-nourished, well-developed patient. SKIN: Focused skin assessment warm/dry. HEAD: Normocephalic. EYES: No scleral icterus. No injection or drainage. EAR: left TM occluded by cerumen NECK: Supple, trachea midline. No JVD or lymphadenopathy. TTP over right anterior cervical chain CARDIOVASCULAR: Regular rate and rhythm without murmurs, gallops, or rubs. RESPIRATORY: Breath sounds equal bilaterally. No accessory muscle use. No wheezing rales or rhonchi GASTROINTESTINAL: Abdomen soft, non-tender, nondistended. MUSCULOSKELETAL: No cyanosis, or edema. BACK: No CVA tenderness. No rash. No point tenderness on palpation of the spine. Lower lumbar paraspinous TTP Data Data Last Documented VS Vital Signs Date Time Temp Pulse Resp B/P (MAP) Pulse Ox O2 Delivery O2 Flow Rate FiO2 04/20/17 15:05 04/20/17 14:08 100 Room Air 04/20/17 13:13 98.9 83 16 Orders Orders Group A Rapid Strep Screen (04/20/17 13:50) Influenzae A/B Antigen (04/20/17 13:50) Oximetry (04/20/17 13:50) Ketorolac Inj (Toradol Inj) (04/20/17 14:00) Strep Culture (Group A) (04/20/17 14:02) Ed Discharge Order (04/20/17 14:57) MDM Medical Decision Making Medical Screen Exam Complete: Yes Emergency Medical Condition: Yes Differential Diagnosis Common Cold versus influenza versus pneumonia versus bronchitis Narrative Course 31-year-old male presents to emergency department complaining of cough cold symptoms for approximately 3 weeks. States that he has had a productive cough with green sputum, fever of 103-107 broken with Mucinex, sore throat. He developed low back pain and body aches for a one-week ago that is worse with coughing. Denies nausea vomiting or diarrhea. Patient denies abdominal pain, chest pain, urinary symptoms. He denies any trauma. Patient denies any chronic medical issues or medication use. States he is using Mucinex and a couple of other fzgy-txh-zjnoewb medications without relief. He works in waste disposal. Vital signs stable. Afebrile. Physical exam findings- unremarkable. Patient does appear in mild distress from his symptoms. Patient states he has been ill for approximately 3 weeks. Because of patient's extended illness we'll prescribe Augmentin for potential developing upper respiratory infection/ bronchitis/ pneumonia. In addition prescribed Tessalon Perles for cough especially at night. Patient should rest for at least a couple of days. Needs adequate fluid intake and nutritious diet. Patient understands when he should return to the emergency department. Diagnosis Primary Impression: Influenza A Additional Impression: Bronchitis Referrals: Primary Care Physician Additional Instructions: Continue nutritious diet with plenty fluid intake. Take medication as prescribed. Cough medication especially at night. If your symptoms persist or worsen return to the emergency department Scripts Amoxicillin-Clavulanate (Augmentin) 875-125 Mg Tab 1 TAB PO BID for Infection for 10 Days, #20 TAB 0 Refills Prov: Lilly Ayala MD 04/20/17 Benzonatate (Tessalon Perles) 100 Mg Cap 100 MG PO TID Y for COUGH for 5 Days, #15 CAP 0 Refills Prov: Lilly Ayala MD 04/20/17 Disposition: 01 DISCHARGE HOME Condition: Stable Zandra Fonseca Apr 20, 2017 13:43
[2017-04-20] MEDS ORDERED: KETOROLAC TROMETHAMINE 60 MG/2 ML (IM) VIAL IM ONE (14:00)
[2017-04-20 14:08] VITALS: O2SAT 100
[2017-04-20] MEDS ORDERED: BENZ100 PO (14:50)
[2017-04-20] MEDS ORDERED: AUGM875T3 PO (14:53)
== END 2017-04-20 15:14 | disposition home or self-care (01) ==
LOC: NEPD 13:11
DX: J09.X2 Influenza due to identified novel influenza A virus with other respiratory manifestations (principal); J40 Bronchitis, not specified as acute or chronic; M54.5 Low back pain
CPT/HCPCS: 87081; 87804; 87880; 96372; 99284; J1885

== ENCOUNTER 2017-04-27 18:12 | Emergency (ER) | payer MEDICAID ==
[~2017-04-27] VITALS: Ht 182.9 cm; Wt 61.5 kg
[~2017-04-27 18:12] MED LIST changes: +AUGM875T3 PO; +BENZ100 PO; -CLIN300C5 PO; -NORC5TAB PO
[2017-04-27 18:13] VITALS: BP 113/66; PULSE 76; RESP 16; TEMP 98.4; O2SAT 100
[2017-04-27] MEDS ORDERED: TETRACAINE 0.5% OPTH SOLN 4 ML BTL LEFT EYE ONE (20:30)
[2017-04-27] MEDS ORDERED: FLUORESCEIN SOD 1 MG STRIP LEFT EYE ONE (20:30)
[2017-04-27] MEDS ORDERED: ALPR.5 PO (21:02)
[2017-04-27] MEDS ORDERED: OFLOXACIN 0.3% OPTH SOLN 5 ML BTL LEFT EYE ONE (21:30)
--- NOTE | 2017-04-27 21:59 | PD ---
HPI Chief Complaint: Eye Problems/Injury Time Seen by Provider: 21:53 Travel History International Travel<30 days: No Contact w/Intl Traveler<30days: No Traveled to known affect area: No History of Present Illness HPI 31-year-old black male presents with department with complaints of foreign body sensation in his left eye. He states that he was driving 2 days ago and felt as if something went into his eye. The patient states that he has had a prior trauma in 2001 from a frozen paintball. He states that he has lost his vision completely. He normally has an irregular pupil and intermittent headaches. He states that he irrigated his eye out but still has persistent pain. Positive sensitivity and tearing. Positive for body sensation. No matting. Chronic blindness. PFSH Past Medical History Narrative Medical Traumatic blindness left eye Asthma: No Blood Disorders: No Anxiety: No Depression: No Heart Rhythm Problems: No Cancer: No Cardiovascular Problems: No High Cholesterol: No Chemotherapy: No Chest Pain: No Congestive Heart Failure: No COPD: No Diabetes: No Diminished Hearing: No Endocrine: No Genitourinary: No Immune Disorder: No Musculoskeletal: No Neurologic: No Psychiatric: No Reproductive: No Respiratory: No Immunizations Current: Yes Radiation Therapy: No Sleep Apnea: No Thyroid Disease: No Tetanus Vaccination: < 5 Years Past Surgical History Surgical History: No Previous Surgery Social History Alcohol Use: No Tobacco Use: No (1 ppd) Substance Use: No Allergies-Medications (Allergen,Severity, Reaction): Coded Allergies: *MDRO Multi-Drug Resistant Organism (Verified Adverse Reaction, Unknown, 04/27/17) MRSA (finger) 12/19/16 Reported Meds & Prescriptions Reported Meds & Active Scripts Active No Active Prescriptions or Reported Medications Review of Systems General / Constitutional: No: Fever Eyes: Positive: Redness, Foreign Body Sensation, Pain, Tearing, Blindness, No: Diploplia, Blurred Vision, Photophobia, Drainage, Visual changes HENT: No: Headaches Cardiovascular: No: Chest Pain or Discomfort Respiratory: No: Shortness of Breath Gastrointestinal: No: Abdominal Pain Genitourinary: No: Dysuria Musculoskeletal: No: Pain Skin: No Rash Neurologic: No: Weakness Psychiatric: No: Depression Endocrine: No: Polydipsia Hematologic/Lymphatic: No: Easy Bruising Physical Exam Narrative GENERAL: Well-developed, well-nourished in no acute distress. Nontoxic appearing. HEAD: Normocephalic, atraumatic. EYES: Pupils equal round and reactive. Extraocular motions intact. No scleral icterus. No injection or drainage in the right eye. The left eye has an irregular pupil. It appears that he is developing a cataract as well. There is a area of irregularity of the cornea just lateral to the central vision at 2- 3:00. This very small punctate. It is unclear whether this is developing ulcer or foreign body. Lids are flipped and no foreign body seen under the lids. Tetracaine is instilled in left eye with resolution of his pain. Fluorescein stained and reveals what appears to be a abrasion versus early ulcer. ENT: TMs clear without erythema. The external auditory canals clear. Nose: clear . Posterior pharynx is pink and moist. No tonsillar edema or exudate. Uvula midline. Airway patent. NECK: Trachea midline.Supple, nontender, moves head freely. No central bony tenderness or spasm. CARDIOVASCULAR: Regular rate and rhythm without murmurs, gallops, or rubs. RESPIRATORY: Clear to auscultation. Breath sounds equal bilaterally. No wheezes , rales, or rhonchi. GASTROINTESTINAL: Abdomen soft, non-tender, nondistended. No hepato-splenomegaly , or palpable masses. No guarding. EXTREMITIES: No clubbing, cyanosis, or edema. No joint tenderness, effusion, or edema noted. BACK: Nontender without deformity or crepitance. No flank tenderness. Data Data Last Documented VS Vital Signs Date Time Temp Pulse Resp B/P (MAP) Pulse Ox O2 Delivery O2 Flow Rate FiO2 04/27/17 21:49 18 04/27/17 18:13 98.4 76 113/66 (82) 100 Room Air Orders Orders Tetracaine 0.5% Opth Soln (Tetracaine 0. (04/27/17 20:30) Fluorescein Strip (Ponxc-K-Yglupy A.T.) (04/27/17 20:30) Ofloxacin 0.3% Opth Soln (Ocuflox 0.3% O (04/27/17 21:30) MDM Medical Decision Making Medical Screen Exam Complete: Yes Emergency Medical Condition: Yes Medical Record Reviewed: Yes Differential Diagnosis MDM: High Differential diagnoses: Acute conjunctivitis (bacterial, viral, allergic, traumatic), glaucoma, iritis, traumatic globe injury, foreign body, corneal abrasion, corneal ulcer, diabetic retinopathy, photokeratitis, herpes keratitis , CMV retinitis Narrative Course Patient appeared to have a abrasion versus early ulcer to his left eye. Patient is given ofloxacin ophthalmic drops. He will continue to use these drops 1 drop every 6 hours until he follows up with the creping machine operator. Diagnosis Primary Impression: left eye corneal ulcer Referrals: Christina Logan MD 1 day Additional Instructions: Rest. One drop of ofloxacin to your left eye 4 times daily. No rubbing. Tylenol or Advil for pain. Follow-up with Dr. Logan tomorrow for recheck. Med/Other Pt SpecificInfo: Prescription(s) given Scripts No Active Prescriptions or Reported Meds Disposition: 01 DISCHARGE HOME Condition: Stable [place]add Apr 27, 2017 21:59
== END 2017-04-27 22:18 | disposition home or self-care (01) ==
LOC: NEPD 18:12
DX: H16.002 Unspecified corneal ulcer, left eye (principal); R51 Headache; F17.200 Nicotine dependence, unspecified, uncomplicated
CPT/HCPCS: 99283

== ENCOUNTER 2017-06-19 14:21 | Emergency (ER) | payer MEDICAID ==
[~2017-06-19] VITALS: Ht 180.3 cm; Wt 63.6 kg
[2017-06-19 14:24] VITALS: BP 103/55; PULSE 97; RESP 14; TEMP 102; O2SAT 100
[2017-06-19] MEDS ORDERED: ACETAMINOPHEN 325 MG TAB PO ONE (14:30)
[2017-06-19 15:00] VITALS: TEMP 101.1
[2017-06-19] MEDS ORDERED: MAGICPED SWISH-SWAL (15:29)
[2017-06-19] MEDS ORDERED: IBUP1TAB7 PO (15:29)
[2017-06-19] MEDS ORDERED: AMOX500C PO (15:29)
--- NOTE | 2017-06-19 15:30 | PD ---
HPI Chief Complaint: Cold / Flu Symptoms Time Seen by Provider: 15:25 Travel History International Travel<30 days: No Contact w/Intl Traveler<30days: No Traveled to known affect area: No History of Present Illness HPI 32-year-old male presents to the emergency Department with complaint of sore throat, headache, body aches since this morning. Denies lump in throat, difficult to swelling, unusual drooling. Denies nasal congestion, ear pain, cough. Reports nausea without vomiting. Reports subjective fevers. Denies abdominal pain, chest pain, shortness of breath. No known sick contacts. Took Tylenol for symptom management. Rates the pain 7/10. Worse with swallowing. [facility] his primary care provider. No known allergies. Denies significant past medical history. Has no other medical complaints. No other modifying factors or associated signs and symptoms. PFSH Past Medical History Asthma: No Blood Disorders: No Anxiety: No Depression: No Heart Rhythm Problems: No Cancer: No Cardiovascular Problems: No High Cholesterol: No Chemotherapy: No Chest Pain: No Congestive Heart Failure: No COPD: No Diabetes: No Diminished Hearing: No Endocrine: No Genitourinary: No Immune Disorder: No Musculoskeletal: No Neurologic: No Psychiatric: No Reproductive: No Respiratory: No Immunizations Current: Yes Radiation Therapy: No Sleep Apnea: No Thyroid Disease: No Social History Alcohol Use: No Tobacco Use: No (1 ppd) Substance Use: No Allergies-Medications (Allergen,Severity, Reaction): Coded Allergies: *MDRO Multi-Drug Resistant Organism (Verified Adverse Reaction, Unknown, 04/27/17) MRSA (finger) 12/19/16 Reported Meds & Prescriptions Reported Meds & Active Scripts Active Ibuprofen 800 Mg Tab 800 Mg PO Q6HR PRN Magic Mouthwash Pediatric/Adult Liq (Lidocaine/Diphenhydr/Alum/Mg/Simeth) 60 Ml Susp 5 Ml SWISH-SWAL ACHS PRN Each 5mL contains: Diphenydramine 4.5mg, Viscous Lidocaine 2% 10mg, Maalox Advanced Regular Strength 2.7ml Amoxicillin 500 Mg Cap 500 Mg PO BID 10 Days Review of Systems Except as stated in HPI: all other systems reviewed are Neg Physical Exam Narrative GENERAL: Well-nourished, well-developed black male patient, in no acute distress ; fever 103.0; nontoxic appearing. SKIN: Warm and dry. No rash. HEAD: Atraumatic. Normocephalic. EYES: Pupils equal and round at 3 mm with brisk reaction. No scleral icterus. No injection or drainage. PERRLA. ENT: Mucosa pink and dry. Pharynx with 2+ tonsils; with erythema, exudate, and edema. No Uvular edema. No uvular, palatal, or tonsillar deviation. Airway patent. Voice is hoarse. EARS: Bilateral pinnae and external canals appear within normal limits. Bilateral tympanic membranes without erythema, dullness or perforation.. NECK: Trachea midline. Anterior cervical lymphadenopathy and tenderness. CARDIOVASCULAR: Regular rate. RESPIRATORY: No accessory muscle use. GASTROINTESTINAL: Flat. MUSCULOSKELETAL: No obvious deformities. No clubbing. No cyanosis. No edema. NEUROLOGICAL: Awake and alert. Oriented 3. No obvious cranial nerve deficits. Motor grossly within normal limits. Normal speech. Moves all extremities. PSYCHIATRIC: Appropriate mood and affect; insight and judgment normal. Data Data Last Documented VS Vital Signs Date Time Temp Pulse Resp B/P (MAP) Pulse Ox O2 Delivery O2 Flow Rate FiO2 06/19/17 14:24 102.0 97 14 103/55 (71) 100 Orders Orders Influenzae A/B Antigen (06/19/17 14:30) Group A Rapid Strep Screen (06/19/17 14:30) Acetaminophen (Tylenol) (06/19/17 14:30) Ed Discharge Order (06/19/17 15:41) MDM Medical Decision Making Medical Screen Exam Complete: Yes Emergency Medical Condition: Yes Medical Record Reviewed: Yes Differential Diagnosis Strep pharyngitis, viral pharyngitis, less likely peritonsillar abscess. Narrative Course 32-year-old male complaining of sore throat. Rapid strep and influenza ordered in triage. This started in triage. Patient has fever 103.0. He is nontoxic- appearing. He was administered Tylenol in triage. 1527: Rapid strep positive. Influenza negative. Amoxicillin, Magic mouthwash , ibuprofen prescribed for home. Instructed patient to follow up with primary care provider. Patient verbalizes understanding and agreement with treatment plan. Patient is medically cleared and stable for discharge. Discussed reasons to return to the emergency department. Patient agrees with treatment plan. The patients vital signs are stable and the patient is stable for outpatient follow-up and treatment. Patient discharged home, stable and in no acute distress. Diagnosis Primary Impression: Strep throat Referrals: Primary Care Physician Patient Instructions: General Instructions, Strep Throat (ED) Departure Forms: Tests/Procedures, Work Release Special Instructions: No Work until fever free for 24 hours Additional Instructions: Take Antibiotics as prescribed and complete full course of antibiotics Throw away and change your toothbrush 24 hours after starting antibiotics Get plenty of sleep/rest Rest your voice Drink plenty of fluids to prevent dehydration Use warm saltwater gargles to soothe throat pain Use an air humidifier/turn off ceiling fans Use throat lozenges as needed for sore throat Use ibuprofen or acetaminophen as needed to relieve pain and fever Follow-up with your primary care provider within 2-4 days Return immediately to the emergency department with worsening of symptoms Med/Other Pt SpecificInfo: Prescription(s) given Scripts Ibuprofen (Ibuprofen) 800 Mg Tab 800 MG PO Q6HR Y for PAIN, #30 TAB 0 Refills Prov: Jaky Rose 06/19/17 Tmcxjmuepdubjjk-Tnigemlky-Eur-Alum-Simeth Liq (Magic Mouthwash Pediatric/Adult Liq) 60 Ml Susp 5 ML SWISH-SWAL ACHS Y for SORE THROAT, #60 ML 0 Refills Each 5mL contains: Diphenydramine 4.5mg, Viscous Lidocaine 2% 10mg, Maalox Advanced Regular Strength 2.7ml Prov: Jaky Rose 06/19/17 Amoxicillin (Amoxicillin) 500 Mg Cap 500 MG PO BID for Infection for 10 Days, #20 CAP 0 Refills Prov: Jaky Rose 06/19/17 Disposition: 01 DISCHARGE HOME Condition: Stable Jaky Rose Jun 19, 2017 15:30
== END 2017-06-19 16:03 | disposition home or self-care (01) ==
LOC: NEPD 14:21
DX: J02.0 Streptococcal pharyngitis (principal)
CPT/HCPCS: 87804; 87880; 99284